=== PATIENT | male | born 1975 | race Caucasian/White ===

== ENCOUNTER 2021-11-28 12:39 | Emergency (ER) | payer OTHER, SELFPAY ==
--- NOTE | ~2021-11-28 | XR_ITS ---
EXAMINATION: XR wrist LT min 3V DATE: 11/28/2021 12:59 INDICATION: Left wrist pain TECHNIQUE: Posteroanterior, ulnar deviation, oblique, and lateral views of the left wrist were obtain ed. COMPARISON: None available FINDINGS: There is no fracture, dislocation, or subluxation. The bones, soft tissues, and joint space s are normal. IMPRESSION: 1. No acute osseous abnormality. Reviewed, dictated and finalized at location A.
[2021-11-28 12:46] VITALS: BP 147/85; PULSE 80; RESP 20; TEMP 37; O2SAT 100
--- NOTE | 2021-11-28 12:53 | ED.UPPEXIN ---
HPI - Extremity Injury (Upper) General Chief Complaint: Extremity Injury, Upper Stated Complaint: Left Wrist Injury Time Seen by Provider: 11/28/21 12:53 Source: patient and RN notes reviewed Mode of arrival: ambulatory Limitations: no limitations History of Present Illness HPI narrative: 46-year-old male presents to the [facility] with complaints of left wrist pain. Patient states that he was lifting 5 gallon buckets. Pain to the dorsal and volar aspects. Minor swelling noted. Positive radial pulse noted. Capillary refill under 2 seconds. Strong operations management professionals, full range of motion of all 5 fingers and wrist and elbow. Related Data Allergies Allergy/AdvReac Type Severity Reaction Status Date / Time No Known Drug Allergies Allergy Unknown unkn Verified 11/28/21 12:54 Review of Systems Review of Systems: All systems reviewed & are unremarkable except as noted in HPI and below Constitutional: Constitutional: Reports no additional constitutional complaints, Denies chills and Denies fever(s) Eyes: Eyes: Reports no additional eye complaints ENT: Reports system reviewed and no additional complaints, except as documented Cardiovascular: Cardiovascular: Reports no additional cardiovascular complaints Respiratory: Respiratory: Reports no additional respiratory complaints Gastrointestinal: Gastrointestinal: Reports no additional gastrointestinal complaints Musculoskeletal: Musculoskeletal: Reports as per HPI Integumentary/Breasts: Skin/Breast: Reports system reviewed and no additional complaints, except as docu Neurologic: Reports system reviewed and no additional complaints, except as documented Psychiatric: Psychiatric: Reports no additional psychiatric complaints Allergic/Immunologic: Allergic/Immunologic: Reports no additional allergic/immunologic complaints PMFSH Past Medical History Medical History Erectile dysfunction Hyperlipidemia Obesity (BMI 30-39.9) ELIAN on CPAP Surgical History Surgical History H/O knee surgery History of ankle surgery Family History Family History Father Cancer Social History Social History Social History: Engaged Smoking status: Never smoker Second hand tobacco smoke exposure: No Alcohol intake: current Alcohol use details: Occasionally Substance use: never Substance use type: does not use Gender identity (if verbalized by the patient): Male Sexual Orientation (if Verbalized by the Patient): Straight or Heterosexual Comments At the time of my signature, I reviewed and agree with the nursing past medical, surgical, social, and family history. There is no relevant family history pertinent to the patient complaint. Exam Const: General: healthy appearing, no acute distress and alert Nutritional Appearance: well nourished and obese Orientation/consciousness: patient oriented x3 Limitations: no limitations HENMT: Head: normal to inspection Ears: external ears normal Eyes: General: appearance normal, both eyes and all related structures Pupils: Equal, round and reactive pupils present Neck: Neck: normal visual inspection, no lymphadenopathy and no meningeal signs Chest: Chest palpation & inspection: normal inspection of the chest Resp: Effort & Inspection: normal respiratory effort and no use of accessory muscles Auscultation: clear to auscultation bilaterally, no crackles, no rales, no rhonchi and no wheezes Cardio: Rate: regular rate Rhythm: regular rhythm Back/Spine/Pelvis: Cervical Spine: normal cervical lordosis Thoracic/Lumbar Spine: thoracic and lumbar spine normal to inspection Skin: General skin exam: normal color Rashes: no rashes Wounds: no wounds Neuro: General: patient oriented x3, moves all extremities, no meningeal signs a
== END 2021-11-28 13:22 | disposition home or self-care (01) ==
PROVIDERS: Emergency Provider Nurse Practitioner; PCP Family Medicine
DX: S63.502A Unspecified sprain of left wrist, initial encounter (principal); X50.3XXA Overexertion from repetitive movements, initial encounter; E78.5 Hyperlipidemia, unspecified; E66.9 Obesity, unspecified; Z68.35 Body mass index [BMI] 35.0-35.9, adult; G47.33 Obstructive sleep apnea (adult) (pediatric)
CPT/HCPCS: 73110; 99213; G0463

== ENCOUNTER → 2022-01-05 08:34 | Outpatient (CLI) | payer OTHER, SELFPAY ==
--- NOTE | ~2022-01-05 | CT_ITS ---
EXAMINATION: CT sinus wo con DATE: 01/05/2022 08:46 INDICATION: Sinusitis TECHNIQUE: Computed tomography (CT) of the paranasal sinuses was performed without intravenous contra st. The dose-length product was 273.81 mGy-cm. Automated exposure control and iterative reconstruction technique were employed. COMPARISON: None FINDINGS: There is mild bilateral maxillary sinus disease. There is rightward nasal septal deviation. Ostiomeatal units are patent. No air-fluid levels. No significant mucoperiosteal reaction. Mastoids are pneumatized. IMPRESSION: 1. Mild maxillary sinus disease. Reviewed, dictated and finalized at location A.
== END ==
PROVIDERS: PCP Family Medicine; Visit Provider Otolaryngology
DX: J32.0 Chronic maxillary sinusitis (principal)
CPT/HCPCS: 70486

== ENCOUNTER 2023-01-21 00:25 | Day surgery (SDC) | payer OTHER, SELFPAY ==
[2023-01-12 12:26] VITALS: BMI 34.8
[2023-01-21 09:08] VITALS: BP 111/81; PULSE 73; RESP 18; TEMP 36.2; O2SAT 99; BMI 35.6
[2023-01-21] MEDS: LACTATED RINGERS 1,000 ML 150 ML IV CONT (09:18)
--- NOTE | 2023-01-21 09:33 | WPDANESEPPF ---
Anes - Initial Pre Proc Eval Procedure: Operation Date: 01/21/23 10:00 Proposed Procedures p Screening Colonoscopy - Albert Richards MD Date/Time: 01/21/23 09:33 Surgeon: Albert Richards MD Pre Op Diagnosis: neoplasm screening Patient Data Age: 47 Gender: M Height: 1.83 m Weight: 119.1 kg Last Vital Signs Temp 97.2 F L 01/21/23 09:08 Pulse 73 01/21/23 09:08 Resp 18 01/21/23 09:08 BP 111/81 01/21/23 09:08 Pulse Ox 99 01/21/23 09:08 O2 Del Method Room Air 01/21/23 09:08 Allergies Allergy/AdvReac Type Severity Reaction Status Date / Time No Known Drug Allergies Allergy Unknown unkn Verified 01/21/23 09:07 Home Medications Medication Instructions Recorded Confirmed Type omeprazole 40 mg capsule,delayed 40 mg PO DAILY 08/05/22 01/21/23 History release montelukast 10 mg tablet See Rx Instructions .Route 08/26/22 01/21/23 Rx .COMPLEX #90 tabs losartan 50 mg tablet 50 mg PO DAILY #90 tabs 11/23/22 01/21/23 Rx dextroamphetamine-amphetamine ER 30 mg PO DAILY #30 caps 12/27/22 01/21/23 Rx 30 mg 24hr capsule,extend release cholecalciferol (vitamin D3) 1,250 See Rx Instructions .Route 01/16/23 01/21/23 Rx mcg (50,000 unit) capsule .COMPLEX #3 caps rosuvastatin 5 mg tablet See Rx Instructions .Route 01/17/23 01/21/23 Rx .COMPLEX #90 tabs sildenafil 100 mg tablet See Rx Instructions .Route 01/17/23 01/21/23 Rx .COMPLEX #30 tabs Patient hx anesthesia problems: none Family hx anesthesia problems: none Results Review: All pre-operative results and documents have been reviewed as part of the pre-operative evaluation. [facility] Past Medical History Medical History ADHD Erectile dysfunction Hyperlipidemia Obesity (BMI 30-39.9) ELIAN on CPAP Surgical History Surgical History H/O knee surgery History of ankle surgery Family History Family History Father Cancer Social History Social History Social History: Engaged Smoking status: Never smoker Second hand tobacco smoke exposure: No Alcohol intake: current Alcohol use details: Occasionally Substance use: never Substance use type: does not use Lack of Transportation: No Lack of Food: Never True Current Housing: I Have Housing Concerned About Future Housing: No Difficulty Paying Gas/Electric Bills: No Difficulty Paying for Meds: No Currently Unemployed: No Education: Decline to Answer Difficulty w/ Childcare or Family Care: No Living arrangements: with family Occupation/Education: occupation Gender identity (if verbalized by the patient): Male Sexual Orientation (if Verbalized by the Patient): Straight or Heterosexual Spiritual care concerns: No Anes - Eval Final PreProcedure Day of Procedure 01/21/23 09:33 Patient weight: obese Heart: regular rate and rhythm Lungs: clear to auscultation Airway: Mallampati scale class II Neurological: alert and oriented Last oral intake: >/= 8 hours ASA classification: III Emergent: no Anesthetic plan: proceed Anesthesia type and monitoring: general GIVS and standard monitoring Results Review: All pre-operative results and documents have been reviewed as part of the pre-operative evaluation. Informed Consent: The patient's anesthetic plan and its attendant risks and benefits were discussed with the patient/family/POA. Questions were solicited and answers provided to the satisfaction of the patient/family/POA.
--- NOTE | 2023-01-21 09:41 | PM.HPGS ---
History of Present Illness History of Present Illness Consent: Risks, benefits, and alternatives have been discussed and questions answered. Patient agrees to proceed with procedure. Chief complaint: neoplasm screening Narrative: Nahid rTevizo is a 47 year old male here for first screening colonoscopy Review of Systems Constitutional: Constitutional: Denies headache(s) and Denies weakness Eyes: Eyes: Denies blurry vision ENT: Reports Normal hearing present, Denies headache(s) and Denies neck pain Cardiovascular: Cardiovascular: Denies chest pain and Denies dyspnea Respiratory: Respiratory: Denies dyspnea Gastrointestinal: Gastrointestinal: Reports no additional gastrointestinal complaints Genitourinary: Genitourinary: Denies dysuria Musculoskeletal: Musculoskeletal: Denies neck pain Integumentary/Breasts: Skin/Breast: Denies dry skin Neurologic: Reports Normal hearing present, Denies headache(s) and Denies weakness Psychiatric: Psychiatric: Denies anxiety Endocrine: Endocrine: Denies change in body appearance Hematologic/Lymphatic: Hematologic/Lymphatic: Denies easy bleeding Allergic/Immunologic: Allergic/Immunologic: Denies urticaria PMFSH Past Medical History Medical History ADHD Erectile dysfunction Hyperlipidemia Obesity (BMI 30-39.9) ELIAN on CPAP Surgical History Surgical History H/O knee surgery History of ankle surgery Family History Family History Father Cancer Social History Social History Social History: Engaged Smoking status: Never smoker Second hand tobacco smoke exposure: No Alcohol intake: current Alcohol use details: Occasionally Substance use: never Substance use type: does not use Lack of Transportation: No Lack of Food: Never True Current Housing: I Have Housing Concerned About Future Housing: No Difficulty Paying Gas/Electric Bills: No Difficulty Paying for Meds: No Currently Unemployed: No Education: Decline to Answer Difficulty w/ Childcare or Family Care: No Living arrangements: with family Occupation/Education: occupation Gender identity (if verbalized by the patient): Male Sexual Orientation (if Verbalized by the Patient): Straight or Heterosexual Spiritual care concerns: No Meds Home Medications and Allergies Home Medications Medication Instructions Recorded Confirmed Type omeprazole 40 mg capsule,delayed 40 mg PO DAILY 08/05/22 01/21/23 History release montelukast 10 mg tablet See Rx Instructions .Route 08/26/22 01/21/23 Rx .COMPLEX #90 tabs losartan 50 mg tablet 50 mg PO DAILY #90 tabs 11/23/22 01/21/23 Rx dextroamphetamine-amphetamine ER 30 mg PO DAILY #30 caps 12/27/22 01/21/23 Rx 30 mg 24hr capsule,extend release cholecalciferol (vitamin D3) 1,250 See Rx Instructions .Route 01/16/23 01/21/23 Rx mcg (50,000 unit) capsule .COMPLEX #3 caps rosuvastatin 5 mg tablet See Rx Instructions .Route 01/17/23 01/21/23 Rx .COMPLEX #90 tabs sildenafil 100 mg tablet See Rx Instructions .Route 01/17/23 01/21/23 Rx .COMPLEX #30 tabs Allergies Allergy/AdvReac Type Severity Reaction Status Date / Time No Known Drug Allergies Allergy Unknown unkn Verified 01/21/23 09:07 Vital Signs Vital Signs - 24 hr 01/21/23 09:08 Temperature 97.2 F L Pulse Rate 73 Respiratory Rate 18 Blood Pressure 111/81 Pulse Oximetry 99 Oxygen Delivery Room Air Exam Const: General: comfortable and no acute distress HENMT: Face/Nose/Sinus: Normal nares present Eyes: General: appearance normal, both eyes and all related structures Neck: Neck: no JVD Resp: Auscultation: clear to auscultation bilaterally Cardio: Rate: regular rate Rhythm: regular rhythm GI: Inspection: non-dis
[2023-01-21 10:07] VITALS: BP 118/76; PULSE 71; RESP 22; O2SAT 99
[2023-01-21 10:17] VITALS: BP 120/78; PULSE 74; RESP 19; O2SAT 100
[2023-01-21 10:28] VITALS: BP 115/79; PULSE 64; RESP 19; O2SAT 100
== END 2023-01-21 10:31 | disposition home or self-care (01) ==
PROVIDERS: PCP Family Medicine; Visit Provider Internal Medicine Gastroenterology
PROC: 0DJD8ZZ Inspection of Lower Intestinal Tract, Via Natural or Artificial Opening Endoscopic (ICD-10-PCS; CPT 45378; principal; 2023-01-21 10:00)
DX: Z12.11 Encounter for screening for malignant neoplasm of colon (principal); K64.8 Other hemorrhoids; F90.9 Attention-deficit hyperactivity disorder, unspecified type; E78.5 Hyperlipidemia, unspecified; G47.33 Obstructive sleep apnea (adult) (pediatric); E66.9 Obesity, unspecified; Z68.35 Body mass index [BMI] 35.0-35.9, adult
CPT/HCPCS: 45378; J2704; J7120